=== PATIENT | female | born 1955 | race Caucasian/White ===

== ENCOUNTER 2019-08-21 16:28 | Inpatient (IN) | payer MEDICARE ==
[~2019-08-21] VITALS: Ht 154.9 cm; Wt 101.0 kg
[2019-08-21 17:36] LABS: BASOPHILS # (AUTO) 0.15 x10^3/uL (0-0.1); BASOPHILS % (AUTO) 2 % (0-1); EOSINOPHILS # (AUTO) 0.13 x10^3/uL (0-0.4); EOSINOPHILS % (AUTO) 1 % (1-7); LYMPHOCYTES % (AUTO) 27 % (22-44); MD NO; MEAN CORPUSCULAR HEMOGLOBIN 33.6 pg (27.0-34.8); MEAN CORPUSCULAR HGB CONC 33.7 g/dL (32.4-35.8); MEAN CORPUSCULAR VOLUME 99.8 fL (80-100); MEAN PLATELET VOLUME 8.4 fL (7.4-10.4); MONOCYTES # (AUTO) 0.56 x10^3/uL (0.2-0.8); MONOCYTES % (AUTO) 6 % (2-9); NEUTROPHILS # (AUTO) 6.08 x10^3/uL (1.8-6.8); NEUTROPHILS % (AUTO) 65 % (42-75); PLATELET COUNT 240 x10^3/uL (130-400); RED BLOOD COUNT 2.49 x10^6/uL (3.82-5.3); RED CELL DISTRIBUTION WIDTH 14.4 % (9.6-15.2)
[2019-08-21 17:44] LABS: ALANINE AMINOTRANSFERASE 16 U/L (12-78); ALBUMIN 3.4 g/dL (3.4-5.0); ANION GAP 8 mmol/L (5-15); CALCIUM 9.2 mg/dL (8.5-10.1); CHLORIDE 105 mmol/L (98-107)
[2019-08-21 17:48] LABS: ALKALINE PHOSPHATASE 69 U/L (45-117); BILIRUBIN,TOTAL 0.3 mg/dL (0.2-1.0); TOTAL PROTEIN 7.3 g/dL (6.4-8.2); TROPONIN I < 0.015 ng/mL (0.000-0.045)
--- NOTE | 2019-08-21 18:19 | NUR ---
HEAD SILVERMAN: NA X 1
--- NOTE | 2019-08-21 18:29 | NUR ---
IMPROVEMENT NURSE: PT AMBULATORY WITH STEADY GAIT TO ROOM FROM LOBBY AT THIS TIME. ANA
[2019-08-21] MEDS ORDERED: LISI-167 PO (19:11)
--- NOTE | 2019-08-21 19:11 | NUR ---
PT HERE WITH MULTIPLE COMPLAINTS. PT STATES ONGOING X 5 DAYS. PT AAO X 4, NAD, ROOM AIR, VSS, DRESSED IN GOWN AND ATTACHED TO MONITOR. CALL LIGHT WITHIN REACH. PT STATES INTERMITTENT CHEST/BACK PAIN, NAUSEA, PALPITATIONS, FATIGUE, AND FAINTNESS.
[2019-08-21 19:42] LABS: INTERNATIONAL NORMALIZED RATIO 0.95 (0.93-1.1)
--- NOTE | 2019-08-21 20:02 | NUR ---
PT TO CT.
--- NOTE | 2019-08-21 20:30 | NUR ---
PT BACK FROM CT.
[2019-08-21] MEDS ORDERED: OMNIPAQUE 350 MG/ML, 100ML BOTTLE ONE (20:34)
--- NOTE | 2019-08-21 21:15 | NUR ---
REPORT GIVEN TO ROSIBEL CRUZ. CARE TRANSFERRED AT THIS TIME.
[2019-08-21] MEDS ORDERED: PANTOPRAZOLE 80 MG in SODIUM CHLORIDE 0.9% 50 ML IVPB ONE (21:33)
[2019-08-21] MEDS ORDERED: ONDANSETRON 2MG/ML, 2ML ONE ×2 (22:36→22:38)
[2019-08-21] MEDS ORDERED: CALCIUM CARBONATE 500 MG TAB.CHEW ONE (22:38)
--- NOTE | 2019-08-21 22:40 | NUR ---
TASK RN: PT MEDICATED PER EMAR FOR NAUSEA
[2019-08-21] MEDS ORDERED: CALCIUM CARBONATE 500 MG TAB.CHEW PO PRN (23:00)
[2019-08-21] MEDS ORDERED: ONDANSETRON 2MG/ML, 2ML IVPush ONE (23:00)
[2019-08-21] MEDS ORDERED: ALUMINUM/MAG/SIMETHICONE 30 ML UDC PO PRN (23:25)
[2019-08-21 23:30] VITALS: BP 113/71
[2019-08-21] MEDS ORDERED: TEMAZEPAM 15 MG CAPSULE PO PRN (23:30)
[2019-08-21] MEDS ORDERED: ACETAMINOPHEN 325 MG TABLET PO PRN (23:30)
[2019-08-21] MEDS ORDERED: GABAPENTIN 300 MG CAPSULE PO PRN (23:30)
[2019-08-21] MEDS ORDERED: hydrALAzine 20 MG/ML, 1ML IVPush PRN (23:30)
[2019-08-21] MEDS ORDERED: DOCUSATE 100 MG CAPSULE PO PRN (23:30)
[2019-08-21] MEDS ORDERED: ONDANSETRON 2MG/ML, 2ML IVPush PRN (23:30)
[2019-08-21] MEDS ORDERED: LIDODERM 5% PATCH TD PRN (23:30)
[2019-08-21 23:57] LABS: TROPONIN I < 0.015 ng/mL (0.000-0.045)
[2019-08-22] VITALS (11 sets, daily range): BP systolic 76–125; BP diastolic 29–79
[2019-08-22] MEDS: PANTOPRAZOLE 80 MG in SODIUM CHLORIDE 0.9% 100 ML IV SCH ×3 (00:13→23:22)
[2019-08-22] MEDS: SODIUM CHLORIDE 0.9% 1,000 ML IV SCH ×2 (00:13→13:33)
[2019-08-22 05:47] LABS: ANION GAP 5 mmol/L (5-15); CALCIUM 8.7 mg/dL (8.5-10.1); CHLORIDE 108 mmol/L (98-107)
[2019-08-22 05:48] LABS: MEAN CORPUSCULAR HGB CONC 32.8 g/dL (32.4-35.8); MEAN CORPUSCULAR VOLUME 100.7 fL (80-100); MEAN PLATELET VOLUME 8.7 fL (7.4-10.4); PLATELET COUNT 199 x10^3/uL (130-400); RED BLOOD COUNT 2.18 x10^6/uL (3.82-5.3); RED CELL DISTRIBUTION WIDTH 14.3 % (9.6-15.2)
[2019-08-22 05:51] LABS: FREE T4 (FREE THYROXINE) 1.03 ng/dL (0.76-1.46); TROPONIN I < 0.015 ng/mL (0.000-0.045)
[2019-08-22 06:20] LABS: MD MORPH REVIEW ONLY
[2019-08-22 06:21] LABS: BASOPHILS # (AUTO) 0.03 x10^3/uL (0-0.1); BASOPHILS % (AUTO) 0 % (0-1); EOSINOPHILS # (AUTO) 0.08 x10^3/uL (0-0.4); EOSINOPHILS % (AUTO) 1 % (1-7); LYMPHOCYTES # (AUTO) 2.09 x10^3/uL (1-3.4); LYMPHOCYTES % (AUTO) 24 % (22-44); MONOCYTES # (AUTO) 0.57 x10^3/uL (0.2-0.8); MONOCYTES % (AUTO) 7 % (2-9); NEUTROPHILS # (AUTO) 5.82 x10^3/uL (1.8-6.8); NEUTROPHILS % (AUTO) 68 % (42-75)
[2019-08-22 06:29] LABS: ANISOCYTOSIS 1+
[2019-08-22 06:30] LABS: POLYCHROMASIA 1+
[2019-08-22 06:31] LABS: <PLATELET ESTIMATE> ADEQUATE; <PLT MORPHOLOGY> NORMAL PLT MORPH
[2019-08-22 10:21] LABS: ALANINE AMINOTRANSFERASE 15 U/L (12-78); ALKALINE PHOSPHATASE 62 U/L (45-117); BILIRUBIN,TOTAL 0.4 mg/dL (0.2-1.0); TOTAL PROTEIN 6.4 g/dL (6.4-8.2)
[2019-08-22 10:33] LABS: BILIRUBIN, DIRECT < 0.1 mg/dL (0.1-0.2); BILIRUBIN,INDIRECT 0.3 mg/dL (0.0-2.0)
[2019-08-23] VITALS (13 sets, daily range): BP systolic 111–144; BP diastolic 60–87
[2019-08-23] MEDS: SODIUM CHLORIDE 0.9% 1,000 ML IV SCH ×2 (01:45→16:05)
[2019-08-23 06:21] LABS: ALANINE AMINOTRANSFERASE 18 U/L (12-78); ALBUMIN 2.7 g/dL (3.4-5.0); ANION GAP 3 mmol/L (5-15); CALCIUM 8.5 mg/dL (8.5-10.1); CHLORIDE 116 mmol/L (98-107)
[2019-08-23 06:24] LABS: ALKALINE PHOSPHATASE 57 U/L (45-117); BILIRUBIN,TOTAL 0.3 mg/dL (0.2-1.0); CREATININE 1.51 mg/dL (0.55-1.02); TOTAL PROTEIN 5.9 g/dL (6.4-8.2)
[2019-08-23 06:30] LABS: MEAN CORPUSCULAR HEMOGLOBIN 33.4 pg (27.0-34.8); MEAN CORPUSCULAR HGB CONC 33.6 g/dL (32.4-35.8); MEAN CORPUSCULAR VOLUME 99.4 fL (80-100); MEAN PLATELET VOLUME 8.3 fL (7.4-10.4); PLATELET COUNT 191 x10^3/uL (130-400); RED BLOOD COUNT 2.04 x10^6/uL (3.82-5.3); RED CELL DISTRIBUTION WIDTH 15.4 % (9.6-15.2)
[2019-08-23 06:54] LABS: BASOPHILS # (AUTO) 0.03 x10^3/uL (0-0.1); BASOPHILS % (AUTO) 1 % (0-1); EOSINOPHILS % (AUTO) 4 % (1-7); LYMPHOCYTES # (AUTO) 2.03 x10^3/uL (1-3.4); LYMPHOCYTES % (AUTO) 39 % (22-44); MD SCAN; MONOCYTES # (AUTO) 0.39 x10^3/uL (0.2-0.8); MONOCYTES % (AUTO) 7 % (2-9); NEUTROPHILS # (AUTO) 2.63 x10^3/uL (1.8-6.8); NEUTROPHILS % (AUTO) 50 % (42-75)
[2019-08-23] MEDS ORDERED: FENTANYL PF 100 MCG/2ML ONE (07:07)
[2019-08-23] MEDS ORDERED: MIDAZOLAM 1 MG/ML, 2ML ONE (07:07)
[2019-08-23] MEDS ORDERED: PHENYLEPHRINE 10 MG/ML ONE (08:17)
[2019-08-23] MEDS ORDERED: CEFOTETAN PMX 2GM/50ML 50 ML ONE (08:17)
[2019-08-23] MEDS ORDERED: PROPOFOL 10 MG/ML, 20ML ONE (08:17)
[2019-08-23] MEDS ORDERED: ONDANSETRON 2MG/ML, 2ML IV PRN (10:30)
[2019-08-23] MEDS ORDERED: LABETALOL 5MG/ML, 20ML IV PRN (10:30)
[2019-08-23] MEDS ORDERED: FENTANYL PF 100 MCG/2ML IV PRN (10:30)
[2019-08-23] MEDS ORDERED: MEPERIDINE/PF 25MG/ML,1ML IVPush PRN (10:30)
[2019-08-23] MEDS ORDERED: ACETAMINOPHEN 325 MG TABLET PO PRN (10:30)
[2019-08-23] MEDS ORDERED: OXYcodone 5 MG/5 ML ORAL.SOL UDC PO PRN (10:30)
[2019-08-23] MEDS ORDERED: hydrALAzine 20 MG/ML, 1ML IV PRN (10:30)
[2019-08-23] MEDS ORDERED: HYDROmorphone 2 MG/ML, 1ML IVPush PRN (10:30)
[2019-08-23] MEDS: PANTOPRAZOLE 80 MG in SODIUM CHLORIDE 0.9% 100 ML IV SCH ×2 (11:15→20:10)
[2019-08-24 02:40] VITALS: BP 131/69
[2019-08-24] MEDS: SODIUM CHLORIDE 0.9% 1,000 ML IV SCH ×2 (05:14→18:31)
[2019-08-24] MEDS: PANTOPRAZOLE 80 MG in SODIUM CHLORIDE 0.9% 100 ML IV SCH ×2 (05:14→16:27)
[2019-08-24 09:58] VITALS: BP_SYST 101; BP_SYST 107; BP_SYST 95; BP_DIAS 57; BP_DIAS 64; BP_DIAS 67
[2019-08-24 15:58] VITALS: BP 136/72
[2019-08-24 19:43] VITALS: BP_SYST 138; BP_SYST 144; BP_SYST 158; BP_DIAS 81; BP_DIAS 82
[2019-08-25 01:19] VITALS: BP 136/75
[2019-08-25] MEDS: PANTOPRAZOLE 80 MG in SODIUM CHLORIDE 0.9% 100 ML IV SCH ×2 (02:00→11:32)
[2019-08-25 06:46] LABS: BASOPHILS # (AUTO) 0.03 x10^3/uL (0-0.1); BASOPHILS % (AUTO) 1 % (0-1); EOSINOPHILS # (AUTO) 0.25 x10^3/uL (0-0.4); EOSINOPHILS % (AUTO) 4 % (1-7); LYMPHOCYTES # (AUTO) 1.89 x10^3/uL (1-3.4); LYMPHOCYTES % (AUTO) 28 % (22-44); MD NO; MEAN CORPUSCULAR HEMOGLOBIN 32.2 pg (27.0-34.8); MEAN CORPUSCULAR HGB CONC 32.7 g/dL (32.4-35.8); MEAN CORPUSCULAR VOLUME 98.4 fL (80-100); MEAN PLATELET VOLUME 8.1 fL (7.4-10.4); MONOCYTES # (AUTO) 0.54 x10^3/uL (0.2-0.8); MONOCYTES % (AUTO) 8 % (2-9); NEUTROPHILS # (AUTO) 3.96 x10^3/uL (1.8-6.8); NEUTROPHILS % (AUTO) 59 % (42-75); PLATELET COUNT 235 x10^3/uL (130-400); RED BLOOD COUNT 2.56 x10^6/uL (3.82-5.3); RED CELL DISTRIBUTION WIDTH 18.1 % (9.6-15.2)
[2019-08-25 06:56] LABS: ANION GAP 5 mmol/L (5-15); CALCIUM 8.6 mg/dL (8.5-10.1); CHLORIDE 114 mmol/L (98-107); CREATININE 1.69 mg/dL (0.55-1.02)
[2019-08-25 08:12] VITALS: BP 144/79
[2019-08-25 08:18] VITALS: BP 142/82
[2019-08-25 08:22] VITALS: BP 150/79
[2019-08-25] MEDS: SODIUM CHLORIDE 0.9% 1,000 ML IV SCH (11:39)
[2019-08-25 14:16] VITALS: BP 158/78
[2019-08-25] MEDS ORDERED: PANT40TA3 PO (17:16)
[2019-08-25] MEDS ORDERED: FLU VACC QS2019-20 36MOS UP/PF 0.5 ML IM-VACC ONE (17:30)
== END 2019-08-25 18:51 | disposition home health service (06) | DRG 378 ==
LOC: ED 19:56 → EDIP 21:33 → 4EST 08-22 00:10
PROVIDERS: ADMIT Internal Medicine; ATTEND Internal Medicine
PROC: 0DB98ZX Excision of Duodenum, Via Natural or Artificial Opening Endoscopic, Diagnostic (ICD-10-PCS; 2019-08-23)
PROC: 30233N1 Transfusion of Nonautologous Red Blood Cells into Peripheral Vein, Percutaneous Approach (ICD-10-PCS; principal; 2019-08-23 07:30)
DX: K92.1 Melena (principal); F33.9 Major depressive disorder, recurrent, unspecified; D62 Acute posthemorrhagic anemia; Z68.41 Body mass index [BMI] 40.0-44.9, adult; K31.89 Other diseases of stomach and duodenum; K86.89 Other specified diseases of pancreas; E66.01 Morbid (severe) obesity due to excess calories; E11.22 Type 2 diabetes mellitus with diabetic chronic kidney disease; R91.8 Other nonspecific abnormal finding of lung field; I12.9 Hypertensive chronic kidney disease with stage 1 through stage 4 chronic kidney disease, or unspecified chronic kidney disease; K44.9 Diaphragmatic hernia without obstruction or gangrene; N18.3 Chronic kidney disease, stage 3 (moderate); Z83.3 Family history of diabetes mellitus; Z87.891 Personal history of nicotine dependence; Z23 Encounter for immunization; I69.318 Other symptoms and signs involving cognitive functions following cerebral infarction; Z98.51 Tubal ligation status; Z91.030 Bee allergy status; Z79.899 Other long term (current) drug therapy; Z79.84 Long term (current) use of oral hypoglycemic drugs
CPT/HCPCS: 36415; 71046; 71275; 74177; 80048; 80053; 80076; 83036; 83735; 84100; 84439; 84443; 84484; 85014; 85018; 85025; 85610; 86301; 86850; 86900; 86923; 88305; 90686; 93005; 93306; 96365; 96375; G0378; J2250; J2405; J2704; J3010; Q9967; C9113; J2370; J3490; J7030; P9016

== ENCOUNTER 2019-09-12 10:41 | Day surgery (SDC) | payer MEDICARE ==
[~2019-09-12] VITALS: Ht 157.5 cm; Wt 99.3 kg
[~2019-09-12 10:41] MED LIST: LISI-167 PO; PANT40TA3 PO
[2019-09-12 11:01] VITALS: BP 137/67
[2019-09-12] MEDS ORDERED: LACTATED RINGERS 1,000 ML IV SCH (11:01)
[2019-09-12] MEDS ORDERED: CEFAZOLIN 1,000 MG ONE (11:47)
[2019-09-12] MEDS ORDERED: PROPOFOL 10 MG/ML, 20ML ONE (11:47)
[2019-09-12] MEDS ORDERED: FENTANYL PF 100 MCG/2ML IV PRN (12:30)
[2019-09-12] MEDS ORDERED: OXYcodone 5 MG/5 ML ORAL.SOL UDC PO PRN (12:30)
[2019-09-12] MEDS ORDERED: ONDANSETRON 2MG/ML, 2ML IV PRN (12:30)
[2019-09-12] MEDS ORDERED: PROMETHAZINE 25 MG/ML, 1ML IV PRN (12:30)
[2019-09-12] MEDS ORDERED: ONDANSETRON ODT 8 MG PO PRN (12:30)
[2019-09-12] MEDS ORDERED: ACETAMINOPHEN 325 MG TABLET PO PRN (12:30)
== END 2019-09-12 13:38 | disposition home or self-care (01) ==
LOC: OUT 10:41
PROVIDERS: ATTEND Internal Medicine
DX: K31.89 Other diseases of stomach and duodenum (principal); K86.89 Other specified diseases of pancreas; E11.22 Type 2 diabetes mellitus with diabetic chronic kidney disease; I12.9 Hypertensive chronic kidney disease with stage 1 through stage 4 chronic kidney disease, or unspecified chronic kidney disease; N18.3 Chronic kidney disease, stage 3 (moderate); F32.9 Major depressive disorder, single episode, unspecified; Z79.899 Other long term (current) drug therapy; Z86.73 Personal history of transient ischemic attack (TIA), and cerebral infarction without residual deficits; Z91.030 Bee allergy status; Z98.51 Tubal ligation status
CPT/HCPCS: 43235; J0690; J2704; J7120

== ENCOUNTER 2019-10-03 07:42 | Day surgery (SDC) | payer MEDICARE ==
[~2019-10-03] VITALS: Ht 156.2 cm; Wt 97.1 kg
[2019-10-03] MEDS ORDERED: LACTATED RINGERS 1,000 ML IV SCH (08:40)
[2019-10-03 08:43] VITALS: BP 122/84
[2019-10-03 08:48] VITALS: BP 122/84
[2019-10-03] MEDS ORDERED: LIDOCAINE-MPF 1%, 2ML ONE (08:52)
[2019-10-03] MEDS ORDERED: LIDOCAINE-MPF 1%, 2ML INFIL ONE (09:00)
[2019-10-03 09:19] LABS: BASOPHILS # (AUTO) 0.03 x10^3/uL (0-0.1); BASOPHILS % (AUTO) 1 % (0-1); EOSINOPHILS # (AUTO) 0.15 x10^3/uL (0-0.4); EOSINOPHILS % (AUTO) 2 % (1-7); LYMPHOCYTES # (AUTO) 1.31 x10^3/uL (1-3.4); LYMPHOCYTES % (AUTO) 19 % (22-44); MD NO; MEAN CORPUSCULAR HEMOGLOBIN 30.3 pg (27.0-34.8); MEAN CORPUSCULAR HGB CONC 32.7 g/dL (32.4-35.8); MEAN CORPUSCULAR VOLUME 92.5 fL (80-100); MEAN PLATELET VOLUME 7.4 fL (7.4-10.4); MONOCYTES % (AUTO) 9 % (2-9); NEUTROPHILS # (AUTO) 4.93 x10^3/uL (1.8-6.8); NEUTROPHILS % (AUTO) 70 % (42-75); PLATELET COUNT 339 x10^3/uL (130-400); RED BLOOD COUNT 3.54 x10^6/uL (3.82-5.3); RED CELL DISTRIBUTION WIDTH 15.7 % (9.6-15.2)
[2019-10-03] MEDS ORDERED: FENTANYL PF 100 MCG/2ML ONE (09:37)
[2019-10-03] MEDS ORDERED: MIDAZOLAM 1 MG/ML, 2ML ONE (09:37)
[2019-10-03] MEDS ORDERED: MEPERIDINE/PF 25MG/ML,1ML IVPush PRN (10:00)
[2019-10-03] MEDS ORDERED: FENTANYL PF 100 MCG/2ML IV PRN (10:00)
[2019-10-03] MEDS ORDERED: OXYcodone 5 MG/5 ML ORAL.SOL UDC PO PRN (10:00)
[2019-10-03] MEDS ORDERED: HYDROmorphone 2 MG/ML, 1ML IVPush PRN (10:00)
[2019-10-03] MEDS ORDERED: HALOPERIDOL 5 MG/ML IV PRN (10:00)
[2019-10-03] MEDS ORDERED: hydrALAzine 20 MG/ML, 1ML IV PRN (10:00)
[2019-10-03] MEDS ORDERED: DEXAMETHASONE 4 MG/ML, 1ML ONE (10:16)
[2019-10-03] MEDS ORDERED: ONDANSETRON 2MG/ML, 2ML ONE (10:16)
[2019-10-03] MEDS ORDERED: PROPOFOL 10 MG/ML, 20ML ONE (10:16)
[2019-10-03] MEDS ORDERED: PHENYLEPHRINE 10 MG/ML ONE (10:16)
== END 2019-10-03 12:40 | disposition home or self-care (01) ==
LOC: OUT 07:42
PROVIDERS: ATTEND Internal Medicine Geriatric Medicine
DX: R93.3 Abnormal findings on diagnostic imaging of other parts of digestive tract (principal); K31.9 Disease of stomach and duodenum, unspecified; K86.9 Disease of pancreas, unspecified; C25.9 Malignant neoplasm of pancreas, unspecified; C78.4 Secondary malignant neoplasm of small intestine; E11.22 Type 2 diabetes mellitus with diabetic chronic kidney disease; N18.3 Chronic kidney disease, stage 3 (moderate); D64.9 Anemia, unspecified; Z91.030 Bee allergy status
CPT/HCPCS: 36415; 43239; 43242; 82962; 85025; 88172; 88173; 88177; 88305; 88307; J1100; J2250; J2370; J2405; J2704; J3010; J7120

== ENCOUNTER → 2019-10-13 | Outpatient (CLI) | payer MEDICARE ==
[~2019-10-13] MED LIST changes: +NONE PER PT
== END | disposition home or self-care (01) ==
LOC: PETCFH 12:47
PROVIDERS: ATTEND Internal Medicine Hematology & Oncology
DX: C25.0 Malignant neoplasm of head of pancreas (principal); R19.00 Intra-abdominal and pelvic swelling, mass and lump, unspecified site
CPT/HCPCS: 78815; A9552

== ENCOUNTER 2019-10-16 07:12 | Day surgery (SDC) | payer MEDICARE ==
[~2019-10-16] VITALS: Ht 154.9 cm; Wt 94.9 kg
[~2019-10-16 07:12] MED LIST changes: -NONE PER PT
[2019-10-16 07:54] VITALS: BP 145/76
[2019-10-16] MEDS ORDERED: NONE PER PT (07:58)
[2019-10-16] MEDS ORDERED: SODIUM CHLORIDE 0.9% 1,000 ML IV SCH (08:00)
[2019-10-16] MEDS ORDERED: CEFAZOLIN PMX 1GM/50ML 50 ML ONE (08:00)
[2019-10-16] MEDS ORDERED: CEFAZOLIN PMX 1GM/50ML 50 ML IV ONE (08:00)
[2019-10-16] MEDS ORDERED: LIDOCAINE 1%, 20ML ONE (09:35)
[2019-10-16] MEDS ORDERED: FENTANYL PF 100 MCG/2ML ONE ×2 (09:36)
[2019-10-16] MEDS ORDERED: FLUMAZENIL 0.1 MG/1 ML, 5ML ONE (09:37)
[2019-10-16] MEDS ORDERED: MIDAZOLAM 1 MG/ML, 5ML ONE (09:37)
[2019-10-16] MEDS ORDERED: NALOXONE 1 MG/ML, 2ML ONE (09:37)
[2019-10-16] MEDS ORDERED: LIDOCAINE-MPF 1%, 5ML ONE (10:29)
== END 2019-10-16 11:40 | disposition home or self-care (01) ==
LOC: OUT 07:12
PROVIDERS: ATTEND Internal Medicine Hematology & Oncology
DX: C25.0 Malignant neoplasm of head of pancreas (principal); E11.22 Type 2 diabetes mellitus with diabetic chronic kidney disease; I12.9 Hypertensive chronic kidney disease with stage 1 through stage 4 chronic kidney disease, or unspecified chronic kidney disease; N18.3 Chronic kidney disease, stage 3 (moderate); F32.9 Major depressive disorder, single episode, unspecified; G62.9 Polyneuropathy, unspecified; D50.0 Iron deficiency anemia secondary to blood loss (chronic); Z87.891 Personal history of nicotine dependence; Z91.030 Bee allergy status; Z91.040 Latex allergy status; Z82.3 Family history of stroke
CPT/HCPCS: 36561; 76937; 77001; 99156; 99157; C1788; J0690; J1642; J2250; J3010; J7030; J2310